=== PATIENT | male | born 1960 | race Caucasian/White ===

== ENCOUNTER 2020-12-07 20:59 | Emergency (ER) | payer OTHER ==
[~2020-12-07] VITALS: Ht 188 cm; Wt 77.1 kg
--- NOTE | ~2020-12-07 | EMS ---
[facility] [address] [place] [address] EMS Patient Care Report Name: STEPHANIE RAKNIN Room #: REG M.RTia#: [id number] Admission: 12/07/20 Attend Phys: Discharge: Date of : 60 Report #: [id number] THIS REPORT FOR: //name// Report Transmitted: 12/08/2020 03:53 EMS Care Summary [place], [place]/[facility] Incident [id number] @ 12/07/2020 20:30 Incident Location [id number] [place] [address] Patient STEPHANIE RANKIN Male, 60 Years 1960 Patient Address [address] Patient History Alcohol Abuse, Patient Allergies No known allergies, Patient Medications None Reported, Chief Complaint ETOH Disposition Transported No Lights/Dolphin Dispatch Reason Unknown Problem/Person Down Transported To [facility] Narrative MEDIC 36 DISPATCHED TO UNKNOWNED WITH POLICE ON SCENE. QT STAFF STOPPED SELLING HIM ALCOHOL. PATIENT WAS SITTING AT THE OUTSIDE TABLE ACTING DROWSY. PATIENT VITALS TAKEN AND PATIENT TEAM LIFTED TO COT WITH SEATBELTS APPLIED. TRANSPORTED TO [facility] WITH NO CHANGES, TEAM LIFTED TO ER BED REPORT GIVING TO NURSE [facility] [address] [place] [address] EMS Patient Care Report Name: STEPHANIE RANKIN Room #: REG JAMILA Leung#: [id number] Admission: 12/07/20 Attend Phys: Discharge: Date of : 60 Report #: [id number] Initial Vitals @20:52P: 77,R: 12,BP: 113/67,Pain: 0/10,Glucose: 99,SpO2: 94, @20:47P: 77,R: 12,BP: 132/74,GCS: 13,Glucose: 107,SpO2: 93,Revised Trauma: 12, Assessments @20:41MENTAL:Person Oriented,SKIN:HEENT:Head/Face: No Abnormalities,Neck/Airway: No Abnormalities,LUNG SOUNDS:General: No Abnormalities,Left Upper: No Abnormalities,Right Upper: No Abnormalities,Left Lower: No Abnormalities,Right Lower: No Abnormalities,ABDOMEN:General: No Abnormalities,Left Upper: No Abnormalities,Right Upper: No Abnormalities,Left Lower: No Abnormalities,Right Lower: No Abnormalities,PELVIS//GI:No Abnormalities,EXTREMITIES:Left Arm: Weakness,Right Leg: Weakness,Left Leg: Weakness,Right Arm: Weakness,PULSE:Radial: 2+ Normal,NEURO:Slurred Speech, Impression Alcohol use Procedures @20:41BLS AssessmentResponse: Unchanged Timeline 20:22,Call Received 20:22,Dispatch Notified 20:30,Dispatched 20:31,En Route 20:39,On Scene 20:40,At Patient 20:41,BLS Assessment,Response: Unchanged 20:47,BP: 132/74 M,PULSE: 77,RR: 12 R,SPO2: 93 Ox,ETCO2: ,B,PAIN: ,GCS: 13, 20:47,Depart Scene 20:52,BP: 113/67 M,PULSE: 77,RR: 12 R,SPO2: 94 Ox,ETCO2: ,B,PAIN: 0,GCS: , 20:56,At Destination 21:23,Call Closed Disclaimer v1.1 Copyright 2020 [employer] This EMS Care Summary contains data elements from the applicable legal record (which may be displayed differently). It is designed to provide pertinent information for the following purposes: continuity of care, clinical quality, and state data reporting. The complete legal record is available to ED staff and administrators of the receiving hospital in [employer]'s Patient Tracker. All data is provided "as is."
[2020-12-08 05:11] VITALS: BP 122/77
== END 2020-12-08 05:12 | disposition home or self-care (01) ==
LOC: ER 20:59
DX: F10.129 Alcohol abuse with intoxication, unspecified (principal)

== ENCOUNTER 2020-12-08 09:56 | Emergency (ER) | payer OTHER ==
[~2020-12-08] VITALS: Ht 185.4 cm; Wt 79.4 kg
[2020-12-08 10:59] LABS: ABSOLUTE NEUTROPHILS 3.4 thou/uL (1.4-8.2); BASOPHILS 1.3 % (0.0-2.0); EOSINOPHILS 2.8 % (0.0-3.0); HEMOGLOBIN 15.9 gm/dL (14.0-18.0); MCH 32.5 pg (26.0-34.0); MCHC 33.8 g/dL (28.0-37.0); MCV 96.1 fL (80.0-100.0); PLATELET COUNT 200 thou/uL (150-400); POLYS 52.9 % (36.0-66.0); RBC 4.89 mil/uL (4.50-6.00); RDW 14.8 % (10.5-14.5); WBC 6.5 thou/uL (4.0-11.0)
[2020-12-08 11:12] LABS: ANION GAP 10 mmol/L (7-16); BUN 11 mg/dL (7-18); CALCIUM 8.4 mg/dL (8.5-10.1); CHLORIDE 104 mmol/L (98-107); CO2 28 mmol/L (21-32); CREATININE 1.2 mg/dL (0.7-1.3); GLUCOSE 87 mg/dL (74-106); POTASSIUM 4.2 mmol/L (3.5-5.1); SODIUM 142 mmol/L (136-145)
[2020-12-08 11:21] LABS: ALBUMIN 3.8 g/dL (3.4-5.0); AMYLASE 41 U/L (25-115); LIPASE 150 U/L (73-393); MAGNESIUM 2.3 mg/dL (1.8-2.4); SGOT 17 U/L (15-37); SGPT 20 U/L (16-63); TOTAL BILIRUBIN 0.2 mg/dL (0.2-1.0); TOTAL PROTEIN 8.8 g/dL (6.4-8.2); TROPONIN-I <0.06 ng/mL (<0.06)
[2020-12-08 12:34] VITALS: BP 109/60
--- NOTE | 2020-12-08 13:44 | EKG ---
[place] [address] [facility] [employer] [place] [address] ELECTROCARDIOGRAM REPORT Name: STEPHANIE RANKIN Room #: DEP Xochitl#: [id number] Admission: 12/08/20 Attend Phys: Discharge: 12/08/20 Date of : 60 Report #: [id number] [facility] ED Test Date: 2020-12-08 Test Time: 10:21:44 Pat Name: STEPHANIE RANKIN Department: Room: Gender: Anesthesiologist/Physician: chandler : 1960 Requested By: Narciso Valdes Order Number: [id number] MD: Shon Smith Measurements Intervals [place] Rate: 82 P: 83 MS: 174 QRS: 41 QRSD: 96 T: 34 QT: 348 QTc: 407 Interpretive Statements Sinus rhythm Left atrial enlargement RSR' in V1 or V2, probably normal variant No previous ECG available for comparison Electronically Signed On 12-08-2020 13:44:51 CDT by Shon Smith [email or web address] <ELECTRONICALLY SIGNED> By: Shon Smith MD, [facility] 12/08/20 1344 1021 1021 Shon Smith MD, FACC /EPI
== END 2020-12-08 13:34 | disposition left against medical advice (07) ==
LOC: ER 09:56
PROVIDERS: Emergency Medicine
DX: F10.129 Alcohol abuse with intoxication, unspecified (principal); Y90.8 Blood alcohol level of 240 mg/100 ml or more

== ENCOUNTER 2020-12-08 20:00 | Emergency (ER) | payer OTHER ==
[~2020-12-08] VITALS: Ht 175.3 cm; Wt 65.8 kg
[2020-12-09 01:50] VITALS: BP 124/65
== END 2020-12-09 03:30 | disposition home or self-care (01) ==
LOC: ER 20:00
DX: F10.129 Alcohol abuse with intoxication, unspecified (principal); Y90.8 Blood alcohol level of 240 mg/100 ml or more